=== PATIENT | female | born 1960 | race Caucasian/White ===

== ENCOUNTER 2016-09-16 13:55 | Emergency (ER) | payer OTHER ==
[~2016-09-16] VITALS: Ht 167.6 cm; Wt 99.3 kg
[~2016-09-16 13:55] MED LIST: DIOVAN320 MG PO; HUMALOG100 UNIT/2 SQ; HYDROCODONE-AP1 EAC6 PO; IBUPROFEN 600600 M1 PO; IMURAN 50MG TAB50 M1 PO; LEVEMIR100 UNIT/1 SUBQ; LOPRESSOR25 PO; METFORMIN HCL500 MG PO; NEURONTIN 300300 M1 PO; NORVASC10 MG PO; OMEPRAZOLE 20 M20 M1 PO; ONGLYZA5 MG PO; PRILOSEC20 MG PO; VENTOLIN HFA 1818 GM INH
[2016-09-16] MEDS ORDERED: PEPCID20 MG PO (16:17)
[2016-09-16] MEDS ORDERED: PREDNISONE 20 M20 MG PO (16:17)
[2016-09-16 16:51] VITALS: BP 124/74
== END 2016-09-16 16:52 | disposition home or self-care (01) ==
LOC: ER 13:55
DX: T78.1XXA Other adverse food reactions, not elsewhere classified, initial encounter (principal); E11.8 Type 2 diabetes mellitus with unspecified complications; J45.909 Unspecified asthma, uncomplicated; Z90.49 Acquired absence of other specified parts of digestive tract; K21.9 Gastro-esophageal reflux disease without esophagitis; M32.9 Systemic lupus erythematosus, unspecified; F10.99 Alcohol use, unspecified with unspecified alcohol-induced disorder; Z79.4 Long term (current) use of insulin; Z98.890 Other specified postprocedural states; Z88.2 Allergy status to sulfonamides; Z88.1 Allergy status to other antibiotic agents; Z88.8 Allergy status to other drugs, medicaments and biological substances; X58.XXXA Exposure to other specified factors, initial encounter

== ENCOUNTER 2017-09-06 13:58 | Emergency (ER) | payer OTHER ==
[~2017-09-06] VITALS: Ht 170.2 cm; Wt 99.8 kg
--- NOTE | ~2017-09-06 | EKG ---
[facility] [place] [address] ELECTROCARDIOGRAM REPORT Name: CORADORIK Myers [id number] Admission: 09/06/17 Attend Phys: Discharge: 09/06/17 Date of : 60 Report #: [id number] THIS REPORT FOR: //name// [facility] ED Test Date: 2017-09-06 Test Time: 14:25:19 Pat Name: RIK CORADO Department: Room: Gender: F Dish Stacker: [facility] : 1960 Requested By: Tatiana Alberto Order Number: [id number] MD: Colt Mcnair Measurements Intervals Delong Rate: 79 P: 15 NM: 151 QRS: -39 QRSD: 111 T: 44 QT: 383 QTc: 440 Interpretive Statements Sinus rhythm Abnormal R-wave progression, late transition Left anterior hemiblock Compared to ECG 09/27/2015 08:18:00 Left ventricular hypertrophy now present axis has shifted leftward Electronically Signed On 09-07-2017 8:30:37 CDT by Colt Mcnair [email or web address] <ELECTRONICALLY SIGNED> By: Colt Mcnair MD, [facility] 09/07/17 0830 1425 142 Colt Mcnair MD, [facility] /EPI
[~2017-09-06 13:58] MED LIST changes: +PEPCID20 MG PO; +PREDNISONE 20 M20 MG PO
[2017-09-06 14:38] LABS: HEMATOCRIT 40.7 % (37.0-47.0); HEMOGLOBIN 13.4 gm/dL (12.0-15.0); MCH 26.5 pg (26.0-34.0); MCHC 33.1 g/dL (28.0-37.0); PLATELET COUNT 510 thou/uL (150-400); RBC 5.08 mil/uL (4.20-5.00); RDW 16.8 % (10.5-14.5); WBC 10.5 thou/uL (4.0-11.0)
[2017-09-06 14:43] LABS: CALCIUM 9.2 mg/dL (8.5-10.1)
[2017-09-06] MEDS ORDERED: LANTUS100 UNIT/M SUBQ (15:38)
[2017-09-06] MEDS ORDERED: PRILOSEC OTC20 MG PO (15:39)
[2017-09-06] MEDS ORDERED: SYNTHROID50 MCG PO (15:40)
[2017-09-06 15:44] LABS: ABSOLUTE NEUTROPHILS 7.6 thou/uL (1.4-8.2)
[2017-09-06 15:45] LABS: ANISOCYTOSIS 1+
[2017-09-06 16:30] VITALS: BP 133/82
== END 2017-09-06 16:30 | disposition home or self-care (01) ==
LOC: ER 13:58
PROVIDERS: Emergency Medicine
DX: I10 Essential (primary) hypertension (principal); M32.9 Systemic lupus erythematosus, unspecified; J45.909 Unspecified asthma, uncomplicated; E11.9 Type 2 diabetes mellitus without complications; K21.9 Gastro-esophageal reflux disease without esophagitis; Z79.4 Long term (current) use of insulin; Z90.89 Acquired absence of other organs; Z90.49 Acquired absence of other specified parts of digestive tract; Z88.8 Allergy status to other drugs, medicaments and biological substances; Z88.2 Allergy status to sulfonamides; Z88.1 Allergy status to other antibiotic agents; Z91.048 Other nonmedicinal substance allergy status

== ENCOUNTER → 2019-01-06 | Outpatient (CLI) | payer OTHER ==
[~2019-01-06] MED LIST changes: +LANTUS100 UNIT/M SUBQ; +PRILOSEC OTC20 MG PO; +SYNTHROID50 MCG PO
== END ==
LOC: ULTRA 09:14
DX: D25.9 Leiomyoma of uterus, unspecified (principal); K76.0 Fatty (change of) liver, not elsewhere classified; Z90.49 Acquired absence of other specified parts of digestive tract

== ENCOUNTER → 2019-08-09 | Outpatient (CLI) | payer OTHER ==
[2019-08-09 11:22] LABS: ABSOLUTE NEUTROPHILS 8.3 thou/uL (1.4-8.2); BASOPHILS 0.2 % (0.0-2.0); EOSINOPHILS 7.3 % (0.0-3.0); HEMATOCRIT 42.5 % (37.0-47.0); HEMOGLOBIN 14.6 gm/dL (12.0-15.0); LYMPHOCYTES 10.7 % (24.0-44.0); MCH 29.6 pg (26.0-34.0); MCHC 34.2 g/dL (28.0-37.0); MCV 86.6 fL (80.0-100.0); MONOCYTES 6.7 % (1.0-8.0); PLATELET COUNT 595 thou/uL (150-400); POLYS 75.1 % (36.0-66.0); RBC 4.91 mil/uL (4.20-5.00); RDW 14.8 % (10.5-14.5)
[2019-08-09 11:55] LABS: ANION GAP 6 mmol/L (7-16); BUN 11 mg/dL (7-18); CALCIUM 9.5 mg/dL (8.5-10.1); CHLORIDE 96 mmol/L (98-107); CHOLESTEROL 202 mg/dL (<200); CO2 32 mmol/L (21-32); CREATININE 0.9 mg/dL (0.6-1.0); GLUCOSE 185 mg/dL (74-106); HDL CHOLESTEROL 44 mg/dL (>40); LDL CHOLESTEROL 101 mg/dL (<100); SODIUM 134 mmol/L (136-145); TC:HDL 4.6 Ratio (Not establshd); TRIGLYCERIDE 287 mg/dL (<150); VLDL 57 mg/dL (<40)
[2019-08-10 00:06] LABS: GLYCOHEMOGLOBIN (HGB A1C) 8.3 % (4.8-5.6)
== END ==
LOC: LAB 10:55
PROVIDERS: ATTEND Family Medicine
DX: I10 Essential (primary) hypertension (principal); E11.9 Type 2 diabetes mellitus without complications; E03.9 Hypothyroidism, unspecified; E78.00 Pure hypercholesterolemia, unspecified

== ENCOUNTER → 2020-02-06 | Outpatient (CLI) | payer OTHER ==
[2020-02-06 13:37] LABS: ABSOLUTE NEUTROPHILS 7.4 thou/uL (1.4-8.2); BASOPHILS 1.3 % (0.0-2.0); EOSINOPHILS 5.8 % (0.0-3.0); HEMATOCRIT 41.8 % (37.0-47.0); HEMOGLOBIN 13.8 gm/dL (12.0-15.0); LYMPHOCYTES 13.1 % (24.0-44.0); MCH 28.8 pg (26.0-34.0); MCHC 33.1 g/dL (28.0-37.0); MCV 87.1 fL (80.0-100.0); MONOCYTES 5.7 % (1.0-8.0); PLATELET COUNT 546 thou/uL (150-400); POLYS 74.1 % (36.0-66.0); RDW 14.6 % (10.5-14.5)
[2020-02-06 13:54] LABS: ALBUMIN 3.6 g/dL (3.4-5.0); ANION GAP 11 mmol/L (7-16); BUN 9 mg/dL (7-18); CALCIUM 9.4 mg/dL (8.5-10.1); CHLORIDE 98 mmol/L (98-107); CHOLESTEROL 191 mg/dL (<200); CO2 28 mmol/L (21-32); GLUCOSE 213 mg/dL (74-106); HDL CHOLESTEROL 49 mg/dL (>40); LDL CHOLESTEROL 113 mg/dL (<100); POTASSIUM 3.4 mmol/L (3.5-5.1); SGOT 18 U/L (15-37); SGPT 25 U/L (30-65); SODIUM 137 mmol/L (136-145); TC:HDL 3.9 Ratio (Not establshd); TOTAL BILIRUBIN 0.3 mg/dL (0.2-1.0); TRIGLYCERIDE 147 mg/dL (<150); VLDL 29 mg/dL (<40)
[2020-02-06 14:08] LABS: TOTAL PROTEIN 7.8 g/dL (6.4-8.2)
[2020-02-07 00:06] LABS: GLYCOHEMOGLOBIN (HGB A1C) 8.2 % (4.8-5.6)
== END ==
LOC: LAB 12:38
PROVIDERS: ATTEND Family Medicine
DX: I10 Essential (primary) hypertension (principal); E11.9 Type 2 diabetes mellitus without complications

== ENCOUNTER → 2020-09-30 | Outpatient (CLI) | payer OTHER ==
[2020-09-30 13:51] LABS: ABSOLUTE NEUTROPHILS 9.6 thou/uL (1.4-8.2); BASOPHILS 0.2 % (0.0-2.0); EOSINOPHILS 4.7 % (0.0-3.0); HEMATOCRIT 43.2 % (37.0-47.0); HEMOGLOBIN 14.4 gm/dL (12.0-15.0); LYMPHOCYTES 11.1 % (24.0-44.0); MCH 28.9 pg (26.0-34.0); MCHC 33.3 g/dL (28.0-37.0); MCV 86.6 fL (80.0-100.0); MONOCYTES 6.5 % (1.0-8.0); PLATELET COUNT 539 thou/uL (150-400); POLYS 77.5 % (36.0-66.0); RBC 4.99 mil/uL (4.20-5.00); RDW 14.8 % (10.5-14.5); WBC 12.3 thou/uL (4.0-11.0)
[2020-09-30 14:11] LABS: ALBUMIN 3.6 g/dL (3.4-5.0); ANION GAP 8 mmol/L (7-16); BUN 13 mg/dL (7-18); CALCIUM 9.3 mg/dL (8.5-10.1); CHLORIDE 99 mmol/L (98-107); CHOLESTEROL 188 mg/dL (<200); CO2 31 mmol/L (21-32); GLUCOSE 191 mg/dL (74-106); HDL CHOLESTEROL 44 mg/dL (>40); LDL CHOLESTEROL 114 mg/dL (<100); POTASSIUM 3.4 mmol/L (3.5-5.1); SGOT 18 U/L (15-37); SGPT 28 U/L (30-65); SODIUM 138 mmol/L (136-145); TC:HDL 4.3 Ratio (Not establshd); TOTAL BILIRUBIN 0.3 mg/dL (0.2-1.0); TOTAL PROTEIN 8.6 g/dL (6.4-8.2); TRIGLYCERIDE 153 mg/dL (<150); VLDL 31 mg/dL (<40)
[2020-10-01 03:06] LABS: GLYCOHEMOGLOBIN (HGB A1C) 8.5 % (4.8-5.6)
== END ==
LOC: LAB 13:12
PROVIDERS: ATTEND Family Medicine
DX: I10 Essential (primary) hypertension (principal); E78.00 Pure hypercholesterolemia, unspecified; E03.9 Hypothyroidism, unspecified; E11.9 Type 2 diabetes mellitus without complications

== ENCOUNTER → 2021-04-08 | Outpatient (CLI) | payer OTHER ==
[2021-04-08 15:43] LABS: ABSOLUTE NEUTROPHILS 6.4 thou/uL (1.4-8.2); BASOPHILS 0.4 % (0.0-2.0); EOSINOPHILS 7.6 % (0.0-3.0); HEMATOCRIT 41.3 % (37.0-47.0); HEMOGLOBIN 13.8 gm/dL (12.0-15.0); LYMPHOCYTES 14.5 % (24.0-44.0); MCH 28.7 pg (26.0-34.0); MCHC 33.5 g/dL (28.0-37.0); MCV 85.7 fL (80.0-100.0); MONOCYTES 6.6 % (1.0-8.0); PLATELET COUNT 451 thou/uL (150-400); POLYS 70.9 % (36.0-66.0); RBC 4.82 mil/uL (4.20-5.00); RDW 15.8 % (10.5-14.5)
[2021-04-08 16:03] LABS: ANION GAP 10 mmol/L (7-16); BUN 10 mg/dL (7-18); CALCIUM 8.8 mg/dL (8.5-10.1); CHLORIDE 101 mmol/L (98-107); CHOLESTEROL 175 mg/dL (<200); CO2 26 mmol/L (21-32); CREATININE 0.9 mg/dL (0.6-1.0); GLUCOSE 167 mg/dL (74-106); HDL CHOLESTEROL 51 mg/dL (>40); LDL CHOLESTEROL 66 mg/dL (<100); POTASSIUM 3.6 mmol/L (3.5-5.1); SODIUM 137 mmol/L (136-145); TC:HDL 3.4 Ratio (Not establshd); TRIGLYCERIDE 294 mg/dL (<150); VLDL 59 mg/dL (<40)
[2021-04-08 16:11] LABS: SERUM ASSESSMENT Moderate Lipemia
[2021-04-10 06:07] LABS: GLYCOHEMOGLOBIN (HGB A1C) 8.3 % (4.8-5.6)
== END ==
LOC: LAB 14:46
PROVIDERS: ATTEND Family Medicine
DX: I10 Essential (primary) hypertension (principal); E78.00 Pure hypercholesterolemia, unspecified; E11.9 Type 2 diabetes mellitus without complications